=== PATIENT | male | born 1990 ===

== ENCOUNTER → 2017-02-05 | Outpatient (CLI) | payer OTHER ==
[~2017-02-05] MED LIST: BIOT1CAP8 PO; CALC500T72 PO; CYAN100020 PO; OMEGCAP2 PO
[2017-02-05 12:47] LABS: BASO % 0.3 %; BASO ABS # 0.03 K/uL (0-0.2); COMPLETE YES; EOS % 1.7 %; HEMATOCRIT 42.7 % (42-52); IG% 0.2 %; LYMPH % 35.6 %; LYMPH ABS # 3.85 K/uL (1.2-3.4); MEAN CELL VOLUME 86.4 fL (80-100); MEAN CORPUSCULAR HEMOGLOBIN 30.4 pg (25-34); MEAN CORPUSCULAR HGB CONC 35.1 g/dl (32-36); MEAN PLATELET VOLUME 10.4 fL (7.4-10.4); MONO % 9.7 %; NEUT % 52.5 %; PLATELET COUNT 245 K/uL (130-400); RED BLOOD COUNT 4.94 M/uL (4.7-6.1)
[2017-02-05 12:51] LABS: POTASSIUM 3.5 mmol/L (3.5-5.1)
[2017-02-05 12:55] LABS: PROTHROMBIN TIME (PATIENT) 11.2 SECONDS (9.0-12.0)
== END | disposition home or self-care (01) ==
LOC: C.LABPBG 07:39
DX: Z01.818 Encounter for other preprocedural examination (principal)

== ENCOUNTER → 2017-02-14 | Day surgery (SDC) | payer OTHER ==
[2017-01-28 15:12] VITALS: Ht 177.8 cm; Wt 95.5 kg
[~2017-02-14] VITALS: Ht 177.8 cm; Wt 95.5 kg
[~2017-02-14] MED LIST changes: +ATROPINE SULFATE 0.1 MG/ML 5ML SYR IV PRN; +CEFAZOLIN 2000 MG/60 ML D5W IV SCH; +DEXAMETHASONE SOD INJ 4 MG/ML VIAL ONE; +EpHEDrine SULFATE INJ 50 MG/ML AMP IV PRN; +EpINEphrine INJ 1MG/ML AMP 1 MG/ML AMP ONE; +FENTANYL CITRATE INJ 50 MCG/1 ML 2 ML VIAL IV PRN; +FENTANYL CITRATE INJ 50 MCG/1 ML 2 ML VIAL ONE; +GLYCOPYRROLATE INJ 0.2 MG/ML VIAL ONE; +HYDROCODONE/ACETAMOPHEN 5/325MG TAB PO PRN; +LACTATED RINGER'S 1000ML 1,000 ML IV SCH; +LIDOCAINE 4% MPF SOAK 5 ML = 1 DOSE TOP ONE; +LIDOCAINE HCL 2% 2 ML VIAL (20MG/ML) ONE; +LIDOCAINE/EPINEPHRINE 1% INJ 50 ML VIAL ONE; +NEOSTIGMINE METHYLSULFATE 5 MG/5 ML SYR ONE; +ONDANSETRON INJ 2 MG/ML 2 ML VIAL IV PRN; +ONDANSETRON INJ 2 MG/ML 2 ML VIAL ONE; +OXYMETAZOLINE HCL 0.05% NA SPR 15 ML BTL PRN; +OXYMETAZOLINE HCL 0.05% NA SPR 15 ML BTL SCH; +PROPOFOL IV EMULSION 10 MG/ML 20 ML VIAL IV ONE; +SUCCINYLCHOLINE CHLORIDE 20 MG/ML 10 ML VIAL IV ONE
--- NOTE | 2017-02-14 09:47 | History & Physical Bridge - [place] ---
H&P Re-Evaluation Bridge Note: I have examined the patient, reviewed the History & Physical and in the interval since the performance of the History & Physical I have noted the following changes of clinical significance: No changes noted
--- NOTE | 2017-02-14 10:31 | [facility] Operative Report ---
Operative Report Operative Date February 14, 2017. Pre-Operative Diagnosis Deviated Septum, Turbinate Hypertrophy Post-Operative Diagnosis Same Procedure(s) Performed Septoplasty, Bilateral Turbinate Reduction Surgeon Dr. Leigh Heating Element Repairer Surgeon(s) None Estimated Blood Loss 10 ml Findings 1. SEVERE R SEPTAL DEVIATION AND L>R INFERIOR TURBINATE HYPERTROPHY Specimens None I attest to the content of the Intraoperative Record and any orders documented therein. Any exceptions are noted below.
--- NOTE | 2017-02-14 10:32 | Discharge Instructions ---
Discharge Instructions Date of Service February 14, 2017. Admission Reason for Admission: Nasal Septal Deviation, Hypertrophy Nasal Turbinat Discharge Discharge Diagnosis / Problem: SAME Discharge Goals Goal(s): Therapeutic intervention Activity Recommendations Activity Limitations: as noted below 1. LIGHT ACTIVITY FOR 2WEEKS 2. NO NOSE BLOWING FOR 2 WEEKS 3. NO DRIVING WHILE ON [place]CO . Current Hospital Diet Patient's current hospital diet: Discharge Diet Recommended Diet: Regular Diet Procedures Procedures Performed: Septoplasty, Bilateral Turbinate Reduction Pending Studies Studies pending at discharge: no Medical Emergencies . Who to Call and When: Medical Emergencies: If at any time you feel your situation is an emergency, please call 911 immediately. . Non-Emergent Contact Non-Emergency issues call your: Surgeon . . "Provider Documentation" section prepared by Franc Leigh. . VTE Core Measure Inpt VTE Proph given/why not?: SCD's
[2017-02-14 11:10] VITALS: TEMP 36.5
--- NOTE | 2017-02-14 11:11 | Anesthesia Progress Nt - [facility] ---
Anesthesia Post Op Note Date & Time February 14, 2017 at 11:11 Vital Signs Pain Intensity: 1 Vital Signs Past 12 Hours Date Time Temp Pulse Resp B/P Pulse Ox O2 Delivery O2 Flow Rate FiO2 02/14/17 11:05 129/81 02/14/17 11:03 36.9 78 16 129/81 97 Room Air 02/14/17 11:03 81 4 99 02/14/17 11:03 82 4 02/14/17 11:00 129/83 02/14/17 10:58 83 22 02/14/17 10:58 85 22 99 02/14/17 10:55 132/87 02/14/17 10:53 79 9 02/14/17 10:53 79 9 100 02/14/17 10:50 130/84 02/14/17 10:48 80 19 02/14/17 10:48 79 19 100 02/14/17 10:45 134/78 02/14/17 10:43 78 17 02/14/17 10:43 77 17 100 02/14/17 10:40 135/80 02/14/17 10:38 81 21 100 02/14/17 10:38 81 21 02/14/17 10:35 130/78 02/14/17 10:33 88 18 02/14/17 10:33 92 18 100 02/14/17 10:30 135/80 02/14/17 10:28 99 129/84 100 02/14/17 10:28 99 02/14/17 10:28 37.0 102 12 129/84 100 Humidified Oxygen 6 Mask 02/14/17 07:50 36.6 76 16 130/89 100 Room Air Notes Mental Status: alert / awake / arousable, participated in evaluation Pt Amnestic to Procedure: Yes Nausea / Vomiting: adequately controlled Pain: adequately controlled Airway Patency, RR, SpO2: stable & adequate BP & HR: stable & adequate Hydration State: stable & adequate Anesthetic Complications: no major complications apparent
[2017-02-14 11:36] VITALS: BP 121/80; PULSE 73; O2SAT 98
--- NOTE | 2017-02-14 16:12 | OPERATIVE REPORT ---
DATE OF OPERATION: 02/14/2017 PREOPERATIVE DIAGNOSES: 1. Severe right septal deviation. 2. Left greater than right inferior turbinate hypertrophy. POSTOPERATIVE DIAGNOSES: 1. Severe right septal deviation. 2. Left greater than right inferior turbinate hypertrophy. PROCEDURES: 1. Septoplasty. 2. Bilateral inferior turbinate outfracture and turbinoplasty. SURGEON: Dr. Leigh. ANESTHESIA: General endotracheal. ESTIMATED BLOOD LOSS: 10 mL. FINDINGS: 1. Severe right nasal septal deviation. 2. Left greater than right inferior turbinate hypertrophy. SPECIMENS: None. COMPLICATIONS: None. INDICATIONS FOR THE PROCEDURE: The patient is a 26-year-old male with a history of right nasal airway obstruction which has been unresponsive to maximum medical therapy. He was found to have severe right septal deviation and left greater than right inferior turbinate hypertrophy. He presents for the above-mentioned procedure on an outpatient elective basis. DESCRIPTION OF PROCEDURE: After informed consent had been obtained from the patient, the patient was wheeled to the operating room and placed on the operating table in a supine position. Monitors were placed. After induction of general endotracheal anesthesia, the patient was prepped in the usual fashion for septoplasty. 1% lidocaine with 1:100,000 epinephrine was used to inject the nasal septum bilaterally, thereby performing hydrodissection of the mucoperichondrial and mucoperiosteal flaps. Lidocaine and epinephrine pledgets were then placed into the bilateral nasal cavities and pressure applied. The pledgets were then removed and a #15 scalpel was used to make a left hemitransfixion incision through which the left-sided mucoperichondrial and mucoperiosteal flap was elevated. A #15 scalpel was then used to incise the quadrangular cartilage with care to preserve a 1.5 cm dorsal and caudal strut through which the right-sided mucoperichondrial and mucoperiosteal flap was elevated. The Tenzin silver knife was then used to remove the deviated portions of the quadrangular cartilage. A V shaped osteotome, mallet, and Rory forceps was then used to remove the bony septal spur which was impinging on the airway posteriorly on the right hand side. The septal cavity was then suctioned. The left hemitransfixion incision was closed with several simple interrupted 4-0 chromic sutures. A 4-0 plain gut suture on a Rupert needle was then used to perform a quilting stitch of the mucoperichondrial and mucoperiosteal flaps bilaterally to help prevent septal hematoma. A Vergara elevator was then used to infracture and subsequently outfracture the inferior turbinates bilaterally. 1% lidocaine with 1:100,000 epinephrine was then used to inject the inferior turbinates bilaterally. A 2.0 mm turbinate blade using powered instrumentation was then used to perform bilateral inferior turbinoplasties in a submucosal fashion. The nasal cavities and nasopharynx were then suctioned. An orogastric tube was placed and the stomach was suctioned free of air and stomach contents. This marked the end of the case. The patient tolerated the procedure well and there were no apparent complications. The patient was extubated and transferred to recovery room in stable condition. I attest to the content of the Intraoperative Record and any orders documented therein. Any exceptio ns are noted below.
== END | disposition home or self-care (01) ==
LOC: X.SURG 07:40
DX: J34.2 Deviated nasal septum (principal); J34.3 Hypertrophy of nasal turbinates; Z98.818 Other dental procedure status; Z87.891 Personal history of nicotine dependence; Z80.9 Family history of malignant neoplasm, unspecified